=== PATIENT | female | born 1990 | race Caucasian/White ===

== ENCOUNTER 2017-10-09 21:37 | Inpatient (IN) | payer MEDICAID ==
[2017-10-09] MEDS ORDERED: Sodium Chloride 0.9% 10 ML Syringe FLUSH PRN (22:01)
[2017-10-09] MEDS ORDERED: Nalbuphine 20 MG/ML 1 ML Syringe IVPUSH PRN (22:01)
[2017-10-09] MEDS ORDERED: Lidocaine 1% 50 ML MDV INJECT ONE (22:01)
--- NOTE | 2017-10-09 22:09 | PCM.LDHP ---
L&D History of Present Illness - General Date of Service: 10/09/17 Admit Problem/Dx: Patient Status Order with Admit Dx/Problem 10/09/17 22:01 Patient Status [ADT] Routine Admission Diagnosis/Problem Admission Diagnosis/Problem Normal 10/09/17 22:04 40-0/7 week intrauterine , active labor, advanced cervical dilation-9 cm 10/09/17 22:04 Source of Information: Patient History Limitations: Reports: No Limitations - History of Present Illness Introduction:: History of present illness: Tamiko is a 26-year-old 2 para 1001 white female who comes in in active labor. She is 9+ centimeters dilated, 100 percent effaced, -2 station, cephalic presentation, bag abarca bulging, very soft cervix , anterior, contractions occurring 3-5 minutes. 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 Patient's last menstrual period was not evident. She does have menses on a monthly basis. Menarche age 9. Positive hCG was 02/04/2017. Her onset of menses was approximately. One previous delivery on 01/29/2016 at 40-1/7 week gestational age of 22 hours labor. 8 lbs. 4 oz. female infant named Lrori. He was born via normal spontaneous vaginal delivery. history: Patient was seen early in the at 11 weeks gestational age. This is on 03/23/2017. Weight at that time was 46.6. Weight at last visit was 180 for a 34 pound weight gain. Height growth was appropriate. Vital signs were stable throughout the course. Laboratory testing and showed her blood type to be A+ with negative amylase screen. First labs showed hemoglobin 12.9 and platelet count of 355. She is rubella immune. Hepatitis B surface antigen and HIV assays were both negative. Gonorrhea and chlamydia are both negative. Her second trimester labs showed hemoglobin 11.1 and platelets of 273,000. Her 1 hour GTT was 102. Group B strep screen was negative. She is rubella immune. Allergies: none Medications: 1. vitamins Past medical history: 1. Normal spontaneous vaginal delivery 2015 2. History of abnormal Pap smear 2013 on repeat was normal Past surgical history: 1. Oral surgery 2008 Family history and father alive and well. Mother does have hypercholesterolemia. One brother and one sister alive and well. Maternal grandmother is alive and well. She does have a history of breast cancer. Paternal grandfather is alive with heart disease. Paternal grandmother is alive and well. Paternal grandfather secondary to pneumonia. One maternal aunt with Down syndrome. No bleeding, anesthesia, clotting or Rounds noted in the family. History: Patient is , is Mac. A live in a [place], [place]. She does not use any significant most alcohol, drugs tobacco. 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 Review of systems: Patient presently having contractions and uncomfortable of these. Baby has been active Skin: Negative Cardiovascular: Negative Respiratory: No infectious symptoms or shortness breath Breasts: Changes associated spring C. Patient does plan to breast-feed GI: Negative : Changes associated including increased fundal height Musculoskeletal: Negative Neurological: Negative Physical exam: General patient is well-developed well-nourished pleasant female in moderate distress secondary to contractions. Last evaluation clinic showed her weight to be 180 which is increased from 146 at first visit. Her blood pressure 111/72 and heart rate was 133. Weight at first visit was 146.6 and height was 5 feet 4. Body mass index is 23.2 Skin is warm dry without lesions. HEENT, neck and back within normal Lungs are clear with good breath sounds in all lung arredondo. Cardiovascular exam shows regular and rhythm without murmurs. Breasts exam deferred having been done at first visit and found to be normal. Abdomen is protuberant with last fundal height in clinic at 38 cm. Baby in vertex presentation. Cervix as described above. Extremities and neurological exam grossly within normal limits. - Related Data Allergies/Adverse Reactions: Allergies Allergy/AdvReac Type Severity Reaction Status Date / Time No Known Allergies Allergy Verified 01/29/16 08:08 Home Medications: Home Meds Vit/Iron Fum/Folic AC [ Vitamin Formula Tb] 1 each PO DAILY [History] Ibuprofen [IJD: Ibuprofen] 600 mg PO Q4H PRN #30 tablet 01/31/16 [Rx] Past Medical History HEENT History: Reports: None BUSINESS SYSTEM CONSULTANT History: Reports: - Past Surgical History HEENT Surgical History: Reports: Oral Surgery Social & Family History - Family History Family Medical History: Noncontributory Oncologic: Reports: Breast - Caffeine Use Caffeine Use: Reports: None H&P Review of Systems - Review of Systems: Review Of Systems: See Below L&D Exam - Exam Exam: See Below Problem List Initiated/Reviewed/Updated: Yes Orders Last 24hrs: Active Orders 24 hr Category Date Time Status Patient Status [ADT] Routine ADT 10/09/17 22:01 Active Activity as Tolerated [RC] PFP Care 10/09/17 22:01 Active Communication Order [RC] ASDIRECTED Care 10/09/17 22:01 Active Heart Tones [RC] ASDIRECTED Care 10/09/17 22:02 Active Notify Provider [RC] PFP Care 10/09/17 22:01 Active Notify Provider [RC] PRN Care 10/09/17 22:01 Active Peripheral IV Care [RC] . DIRECTED Care 10/09/17 22:02 Active Vital Signs [RC] PER UNIT ROUTINE Care 10/09/17 22:01 Active Regular Diet [DIET] Diet 10/09/17 Dinner Active Lactated Ringers [Ringers, Lactated] 1,000 ml Med 10/09/17 22:15 Ordered IV ASDIRECTED Lidocaine 1% [Xylocaine 1%] Med 10/09/17 22:01 Once 10 ml INJECT ONETIME ONE Nalbuphine [Nubain] Med 10/09/17 22:01 Ordered 10 mg IVPUSH Q2H PRN Sodium Chloride 0.9% [Saline Flush] Med 10/09/17 22:01 Ordered 10 ml FLUSH ASDIRECTED PRN Electronic Heart Tones Ext w TOCO [WOMSER] Oth 10/09/17 22:01 Ordered Routine Electronic Heart Tones Internal [WOMSER] Per Unit Oth 10/09/17 22:01 Ordered Routine Peripheral IV Insertion Adult [OM.PC] Routine Oth 10/09/17 22:01 Ordered Resuscitation Status Routine Resus Stat 10/09/17 22:01 Ordered Medication Orders Lactated Ringer's (Ringers, Lactated) 1,000 mls @ 100 mls/hr IV ASDIRECTED MARY ANNE Lidocaine HCl (Xylocaine 1%) 10 ml INJECT ONETIME ONE Stop: 10/09/17 22:02 Nalbuphine HCl (Nubain) 10 mg IVPUSH Q2H PRN PRN Reason: Pain (moderate 4-6) Sodium Chloride (Saline Flush) 10 ml FLUSH ASDIRECTED PRN PRN Reason: Keep Vein Open Assessment/Plan Comment:: 1. Term intrauterine at 40-0/7 weeks gestational age, active labor, advanced cervical dilation. 2. Group B strep screen negative 3. Rubella negative. 4. Patient desires natural labor. Plan: 1. Anticipate normal spontaneous vaginal delivery. 2. natural labor 3. support nursing plan 4. Routine labor care.
[2017-10-09] MEDS ORDERED: Lactated Ringers 1,000 ML IV SCH (22:15)
--- NOTE | 2017-10-09 22:48 | PCM.SN ---
- Free Text/Narrative Note: Delivery note: Tamiko is a-year-old 2 now para 2002 white female who was admitted on the evening of 10/09/2017 in active labor. She is found be 9+ centimeters dilated , 100% effaced, -2 station, bulging bag of abarca, cephalic presentation, active labor with contractions every 3-5 minutes. She is at 40-0/7 weeks gestational age with an INO of 10/09/2017 as determined by an 11 week ultrasound. Patient progressed rapidly in labor and within a half-hour of the time of admission was ready to deliver. She had artificial rupture membranes resulting in clear amniotic fluid. She delivered a viable, adame, 3620 g (8 lbs. 0 oz. ) male infant with Apgars of 7 and 9, a length of 22 inches in a left occiput anterior position at 2221 hours.. There was a nuchal cord 2 which was reduced over the baby's body. After baby was delivered cord was clamped 2 and cut by the father of the baby. Baby was placed on mom's abdomen, dried. The nose and mouth were bulb suctioned. Cord blood was obtained. Pitocin was administered IV to facilitate increase in uterine tone decrease likelihood of uterine bleeding. The placenta delivered at 2226 hours in a Em fashion, was complete and intact and was discarded per patient desire. It had a three-vessel cord. Patient plans to breast-feed. Estimated blood loss was 200 mL. Condition: Good
[2017-10-09] MEDS ORDERED: Witch Hazel Medicated Pads 100/Jar TOP PRN (22:55)
[2017-10-09] MEDS ORDERED: Benzocaine/Menthol 20%-0.5% Spray 56 GM Canister TOP PRN (22:55)
[2017-10-09] MEDS ORDERED: Lanolin 100% Cream 7 GM Tube TOP PRN (22:55)
[2017-10-09] MEDS ORDERED: Docusate Sodium 100 MG Cap PO PRN (22:55)
[2017-10-09] MEDS ORDERED: Ibuprofen 600 MG Tab PO PRN (22:55)
[2017-10-09] MEDS ORDERED: Acetaminophen 325 MG Tab PO PRN (22:55)
[2017-10-10] MEDS ORDERED: Prenatal Multivitamin with Calcium/Folic Acid/Iron Tab PO SCH (09:00)
--- NOTE | 2017-10-11 05:45 | PCM.DCSUM1 ---
Discharge Summary - Hospital Course Free Text/Narrative:: Tamiko is a-year-old 2 now para 2002 white female who was admitted on the evening of 10/09/2017 in active labor. She is found be 9+ centimeters dilated , 100% effaced, -2 station, bulging bag of abarca, cephalic presentation, active labor with contractions every 3-5 minutes. She is at 40-0/7 weeks gestational age with an INO of 10/09/2017 as determined by an 11 week ultrasound. Patient progressed rapidly in labor and within a half-hour of the time of admission was ready to deliver. She had artificial rupture membranes resulting in clear amniotic fluid. She delivered a viable, adame, 3620 g (8 lbs. 0 oz. ) male infant with Apgars of 7 and 9, a length of 22 inches in a left occiput anterior position at 2221 hours.. There was a nuchal cord 2 which was reduced over the baby's body. After baby was delivered cord was clamped 2 and cut by the father of the baby. Baby was placed on mom's abdomen, dried. The nose and mouth were bulb suctioned. Cord blood was obtained. Pitocin was administered IV to facilitate increase in uterine tone decrease likelihood of uterine bleeding. The placenta delivered at 2226 hours in a Em fashion, was complete and intact and was discarded per patient desire. It had a three-vessel cord. Patient plans to breast-feed. Estimated blood loss was 200 mL. patient has done well. She is ambulating well, voiding without problems and nursing without concerns. Her lochia is minimal. She is desiring discharge home. - Discharge Data Discharge Date: 10/11/17 Discharge Disposition: Home, Self-Care 01 Condition: Good - Patient Instructions Diet: Regular Diet as Tolerated (Nursing diet was increased calories and calcium is recommended) Activity: As Tolerated (No intercourse tampons until bleeding resolves) Driving: May Drive Today Showering/Bathing: May Shower (May take a bath) Notify Provider of: Fever, Increased Pain, Swelling and Redness, Nausea and/or Vomiting - Discharge Plan Home Medications: Home Meds Vit/Iron Fum/Folic AC [ Vitamin Formula Tb] 1 each PO DAILY [History] Ibuprofen [IJD: Ibuprofen] 600 mg PO Q4H PRN #30 tablet 01/31/16 [Rx] Acetaminophen [Tylenol] 650 mg PO Q4H PRN tablet 10/11/17 [Rx] Referrals: Ray Corrales MD [Primary Care Provider] - (Return to clinicDr. Corrales2 weeks.) - Discharge Summary/Plan Comment DC Time >30 min.: No Discharge Summary/Plan Comment: Discharge instructions: 1. Discharge home 2. Diet, activity and follow-up discussed with patient. Recommend nursing diet with increased calories and calcium. 3. Precautions given concern increased pain, bleeding, temperature, signs/ symptoms of DVT/PE. 4. Medications per home medication was printed, discussed with and given to the patient. 5. Return to clinic-Dr. Corrales-[facility] in 2 weeks. Diagnosis: Term -delivered Condition: Good - Patient Data Vitals - Most Recent: Last Vital Signs Temp 36.4 C 10/11/17 02:46 Pulse 69 10/11/17 02:46 Resp 16 10/11/17 02:46 BP 108/66 10/11/17 02:46 Pulse Ox 98 10/11/17 02:46 Weight - Most Recent: 80.286 kg I&O - Last 24 hours: Intake & Output 10/10/17 10/10/17 10/11/17 14:59 22:59 06:59 Intake Total 660 240 Balance 660 240 Lab Results - Last 24 hrs: Laboratory Results - last 24 hr 10/10/17 Range/Units 22:42 WBC 11.48 H (3.98-10.04) K/mm3 RBC 4.12 (3.98-5.22) M/mm3 Hgb 11.1 L (11.2-15.7) gm/L Hct 35.0 (34.1-44.9) % MCV 85.0 (79.4-94.8) fl MCH 26.9 (25.6-32.2) pg MCHC 31.7 L (32.2-35.5) g/dl RDW Std Deviation 42.7 (36.4-46.3) fL Plt Count 265 (182-369) K/mm3 MPV 11.2 (9.4-12.3) fl Med Orders - Current: Current Medications Acetaminophen (Tylenol) 650 mg PO Q4H PRN PRN Reason: mild pain or fever Benzocaine/Menthol (Dermoplast Pain Relief [place]) 0 gm TOP ASDIRECTED PRN PRN Reason: Perineal Comfort Measure Docusate Sodium (Colace) 100 mg PO BID PRN PRN Reason: Constipation Emollient Ointment (Lansinoh Hpa) 0 gm TOP ASDIRECTED PRN PRN Reason: Sore Nipples Ibuprofen (Motrin) 600 mg PO Q4H PRN PRN Reason: Mild pain or fever Last Admin: 10/10/17 01:22 Dose: 600 mg Prenat Multivit/Buttoner/Iron/Folic Ac ( Plus Iron) 1 each PO DAILY [facility] Barrett Meztger (Tucks) 1 pad TOP ASDIRECTED PRN PRN Reason: Hemorrhoid pain Discontinued Medications Lactated Ringer's (Ringers, Lactated) 1,000 mls @ 100 mls/hr IV ASDIRECTED [facility] Last Admin: 10/09/17 22:21 Dose: 999 mls/hr Lidocaine HCl (Xylocaine 1%) 10 ml INJECT ONETIME ONE Stop: 10/09/17 22:02 Last Admin: 10/09/17 22:29 Dose: 10 ml Nalbuphine HCl (Nubain) 10 mg IVPUSH Q2H PRN PRN Reason: Pain (moderate 4-6) Sodium Chloride (Saline Flush) 10 ml FLUSH ASDIRECTED PRN PRN Reason: Keep Vein Open
[2017-10-11 10:40] VITALS: BP 108/71
== END 2017-10-11 10:45 | disposition home or self-care (01) | DRG 775 ==
LOC: JD.OBCHECK 21:37 → JD.OB 21:40 → JD.OBCHECK 22:06 → OBSVTOIN 22:06 → JD.OB 22:21
PROVIDERS: ADMIT Obstetrics & Gynecology; ATTEND Obstetrics & Gynecology
PROC: 10E0XZZ Delivery of Products of Conception, External Approach (ICD-10-PCS; principal; 2017-10-09)
PROC: 10907ZC Drainage of Amniotic Fluid, Therapeutic from Products of Conception, Via Natural or Artificial Opening (ICD-10-PCS; 2017-10-09)
PROC: 6A550ZT Pheresis of Cord Blood Stem Cells, Single (ICD-10-PCS; 2017-10-09)
PROC: 0HQ9XZZ Repair Perineum Skin, External Approach (ICD-10-PCS; 2017-10-09)
DX: O69.81X0 Labor and delivery complicated by cord around neck, without compression, not applicable or unspecified (principal); O70.0 First degree perineal laceration during delivery; Z3A.40 40 weeks gestation of pregnancy; Z37.0 Single live birth
CPT/HCPCS: 36415; 59025; 59300; 59409; 85027; 86592; A9270-GY; J7120

== ENCOUNTER 2019-03-19 05:14 | Inpatient (IN) | payer MEDICAID ==
[~2019-03-19 05:14] MED LIST: Bupivacaine 0.25% 10 ML SDV ONE; Nalbuphine 10 MG/1 ML Vial IVPUSH PRN; Sodium Chloride 0.9% 10 ML Syringe FLUSH PRN
--- NOTE | 2019-03-19 06:17 | HP ---
DATE OF ADMISSION: 03/19/2019 ADMISSION DIAGNOSIS: 39 and 6/7 weeks intrauterine , breech presentation. HISTORY OF PRESENT ILLNESS: Tamiko is a 28-year-old, 3, para 2-0-0-2 white female who was admitted for an attempt at external cephalic version with possible induction of labor, possible primary section. Her INO is 03/20/2019 that is based upon a certain last menstrual period starting 06/13/2018 and supported by 2 ultrasounds done on 08/29/2018 and 11/17/2018. She has been found on most recent evaluation in the clinic to have a breech presenting . Ultrasound shows a augusta breech presenting with back to the left and head in the right upper quadrant. Discussion was held with the patient concerning options of therapy including vaginal breech delivery, external cephalic version, primary section. The patient has been explained the risks, benefits, limitations, and followup of each modality and has decided on an attempt at external cephalic version with induction of labor to follow up if successful. If unsuccessful, we will proceed to primary section. The procedure of terbutaline relaxation, IV access, preprocedure monitoring, and ultrasound are all discussed with the patient. Also, discussed are the potential risks with external cephalic version. The consent is signed. WRITER HISTORY: Tamiko is a 3, para 2-0-0-2, INO of 03/20/2019. The patient's first visit was on 08/29/2018. She has had regular care throughout the . Her weight gain has been from 154 up to 183 pounds for a 29- pound weight gain. Her pre gravid weight was 155. Height is 5 feet 4.5 inches. Prepregnancy body mass index was 26.2. course was relatively unremarkable until the breech presentation, but the patient had declined genetic testing. Her [place] depression screen score was 0/30. Group B Strep screen was negative. The patient plans to breastfeed. Laboratory testing in shows her blood to be B positive with a negative antibody screen. First hemoglobin was 13.7 g/dL. Platelets were 329,000. Her rubella titer shows immunity. RPR is nonreactive. Urine culture at first was negative. Hepatitis B surface antigen and HIV assays were both negative as were her chlamydia and gonorrhea assays. Second trimester labs showed hemoglobin mildly decreased at 11.6 g/dL and platelets were 280,000. 1- hour glucose was 58 mg/dL. Group B Strep screen was negative. PAST OBSTETRIC HISTORY: Includes the followin. Female born on 01/29/2017 at 40 and 1/7 weeks gestational age after 22 hours of labor. 8 pounds 4 ounces female named Lorri. She was born via normal spontaneous vaginal delivery. 2. Male infant born on 10/09/2017 at 40 and 0/7 weeks gestational age, 1 hour of labor, 8 pounds. Normal spontaneous vaginal delivery. Child's name is Beck. PAST MEDICAL HISTORY: Normal spontaneous vaginal delivery x2. PAST SURGICAL HISTORY: Oral surgery in 2007. FAMILY HISTORY: Mother and father alive and well. Mother does have hypercholesterolemia. One brother and 1 sister alive and well. Maternal grandmother alive and well, but with a history of breast cancer. Maternal grandfather alive with heart disease. Paternal grandmother alive and well. Paternal grandfather secondary to pneumonia. No bleeding, asthma, anesthesia, clotting, or problems noted in the family. SOCIAL HISTORY: The patient is . Her 's name is Josué Sharma. The patient lives in [place], [place]. 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 Her is a larkin. She does not use any significant amounts of alcohol, drugs, or tobacco. CURRENT MEDICATIONS: vitamins daily. ALLERGIES: None. REVIEW OF SYSTEMS: GENERAL: The patient has no complaints. She reports good activity and no contractions. SKIN: Negative. HEENT, NECK, and BACK: Negative. CARDIOVASCULAR: No chest pain or exercise intolerance. RESPIRATORY: No shortness of breath or infectious symptoms. BREASTS: Changes associated with only including increased size and tenderness. GASTROINTESTINAL: Negative. GENITOURINARY: Body habitus changes associated with increased fundal height. EXTREMITIES: Negative with the exception of occasional edema. NEUROLOGIC: Negative. PHYSICAL EXAMINATION: GENERAL: The patient is well-developed, well-nourished, female at term. VITAL SIGNS: Her blood pressure on last evaluation in the clinic was 130/72. SKIN: Warm and dry without lesions. HEENT, NECK and BACK: Within normal limits. LUNGS: Clear with good breath sounds in all lung arredondo. CARDIOVASCULAR: Shows regular rate and rhythm without murmurs. BREASTS: Deferred at this time, having been done earlier in the and found to be normal. ABDOMEN: Protuberant with with fundal height at 39 cm. Baby in a breech presentation confirmed by ultrasound. Cervix on last evaluation in the clinic was 2 cm dilated, 40% effaced, soft, -3 station, and mid position. EXTREMITIES: Showed no significant edema. NEUROLOGIC: Grossly within normal limits. ASSESSMENT: 1. 39 and 6/7 weeks intrauterine , augusta breech presentation, admitted for an attempt at external cephalic version. If successful, we will proceed to induction of labor. If unsuccessful, we will proceed to primary section. 2. Group B Strep screen negative. 3. The patient plans to breastfeed. 4. The patient is up to date regarding her influenza vaccine which was given on 03/05/2019. 5. Her Tdap is up to date given on 01/29/2019. 6. RPR is nonreactive and MMR shows immunity. PLAN: 1. We will assess with ultrasound at bedside to determine presentation. If continues to be breech, we will proceed with external cephalic version. The patient has been assessed of the procedure, risks, limitations, and followup. She has signed a consent. 2. The patient will be premedicated with terbutaline 0.25 mg IV over 2 to 3 minutes. 3. Attempt will be made with ultrasound guidance to do external cephalic version. 4. Prior to the procedure, preoperative labs will be obtained, consents will be signed and electronic monitoring will be performed to reassure heart tones. 5. If we proceed with section, we would use Ancef 2 g IV preop for infection prophylaxis. 6. Deep vein thrombosis prophylaxis with sequential compression devices. MMODAL /[id number] TEETEE
[2019-03-19] MEDS: Lactated Ringers 1,000 ML IV SCH ×2 (07:40→12:52)
[2019-03-19] MEDS ORDERED: Oxytocin/Lactated Ringers 10 UNIT/1,000 ML BAG IV SCH ×2 (07:45)
[2019-03-19] MEDS ORDERED: diphenhydrAMINE 50 MG/ML SDV IVPUSH PRN (07:46)
[2019-03-19] MEDS ORDERED: fentaNYL/Bupivacaine/NS 2 MCG-0.125% 250 ML EPIDUR PRN (07:46)
[2019-03-19] MEDS ORDERED: fentaNYL 100 MCG/2 ML SDV EPIDUR PRN (07:46)
[2019-03-19] MEDS ORDERED: ePHEDrine 50 MG/ML SDV IVPUSH PRN (07:46)
--- NOTE | 2019-03-19 18:22 | PCM.PREANE ---
Preanesthetic Assessment - Procedure Proposed Procedure: epidural - Anesthesia/Transfusion/Family Hx Anesthesia History: Prior Anesthesia Without Reaction Family History of Anesthesia Reaction: No Transfusion History: No Prior Transfusion(s) - Review of Systems General: Fatigue, Malaise Pulmonary: No Symptoms Cardiovascular: No Symptoms Gastrointestinal: Abdominal Pain (lapor pains) Neurological: No Symptoms Other: Reports: None - Physical Assessment Vital Signs: Last Vital Signs Temp 36.9 C 03/19/19 06:56 Pulse 84 03/19/19 06:56 Resp 16 03/19/19 06:56 BP 112/75 03/19/19 06:56 Pulse Ox Height: 1.63 m Weight: 84.368 kg ASA Class: 2 Mental Status: Alert & Oriented x3 Airway Class: Mallampati = 1 Dentition: Reports: Normal Dentition Thyro-Mental Finger Breadths: 3 Mouth Opening Finger Breadths: 3 ROM/Head Extension: Full Lungs: Clear to Auscultation, Normal Respiratory Effort Cardiovascular: Regular Rate, Regular Rhythm - Lab Values: Laboratory Last Values WBC 8.22 K/mm3 (3.98-10.04) 03/19/19 07:00 RBC 3.77 M/mm3 (3.98-5.22) L 03/19/19 07:00 Hgb 9.8 gm/dl (11.2-15.7) L D 03/19/19 07:00 Hct 31.5 % (34.1-44.9) L 03/19/19 07:00 MCV 83.6 fl (79.4-94.8) D 03/19/19 07:00 MCH 26.0 pg (25.6-32.2) 03/19/19 07:00 MCHC 31.1 g/dl (32.2-35.5) L 03/19/19 07:00 RDW Std Deviation 40.8 fL (36.4-46.3) 03/19/19 07:00 Plt Count 252 K/mm3 (182-369) 03/19/19 07:00 MPV 10.5 fl (9.4-12.3) 03/19/19 07:00 Neut % (Auto) 70.3 % (34.0-71.1) 03/19/19 07:00 Lymph % (Auto) 19.2 % (19.3-51.7) L 03/19/19 07:00 [place] % (Auto) 8.8 % (4.7-12.5) 03/19/19 07:00 Eos % (Auto) 0.9 (0.7-5.8) 03/19/19 07:00 Baso % (Auto) 0.4 % (0.1-1.2) 03/19/19 07:00 Neut # (Auto) 5.79 K/mm3 (1.56-6.13) 03/19/19 07:00 Lymph # (Auto) 1.58 K/mm3 (1.18-3.74) 03/19/19 07:00 [place] # (Auto) 0.72 K/mm3 (0.24-0.36) H 03/19/19 07:00 Eos # (Auto) 0.07 K/mm3 (0.04-0.36) 03/19/19 07:00 Baso # (Auto) 0.03 K/mm3 (0.01-0.08) 03/19/19 07:00 RPR Non-reactive (NONREACTIVE) 03/19/19 07:00 Blood Type B POSITIVE 03/19/19 07:00 Gel Antibody Screen Negative 03/19/19 07:00 - Allergies Allergies/Adverse Reactions: Allergies Allergy/AdvReac Type Severity Reaction Status Date / Time No Known Allergies Allergy Verified 03/19/19 04:21 - Anesthesia Plan Pre-Op Medication Ordered: None - Acknowledgements Anesthesia Type Planned: Epidural Pt an Appropriate Candidate for the Planned Anesthesia: Yes Alternatives and Risks of Anesthesia Discussed w Pt/Guardian: Yes Pt/Guardian Understands and Agrees with Anesthesia Plan: Yes PreAnesthesia Questionnaire - Past Health History Medical/Surgical History: Denies Medical/Surgical History HEENT History: Reports: None Gastrointestinal History: Reports: GERD 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: - Infectious Disease History Infectious Disease History: Reports: None - Past Surgical History HEENT Surgical History: Reports: Oral Surgery Other HEENT Surgeries/Procedures: wisdom teeth removed in 2007 - SUBSTANCE USE Smoking Status *Q: Never Smoker Second Hand Smoke Exposure: No Recreational Drug Use History: No - HOME MEDS Home Medications: Home Meds Vit/Iron Fum/Folic AC [ Vitamin Formula Tb] 1 each PO DAILY [History] Acetaminophen [Tylenol] 650 mg PO Q4H PRN tablet 10/11/17 [Rx] - CURRENT (IN HOUSE) MEDS Current Meds: Current Medications Diphenhydramine HCl (Benadryl) 25 mg IVPUSH Q6H PRN PRN Reason: Itching Ephedrine Sulfate (Ephedrine Sulfate) 5 mg IVPUSH ASDIRECTED PRN PRN Reason: HYPOTENTSION Fentanyl (Sublimaze) 100 mcg EPIDUR Q3H PRN PRN Reason: Pain Last Admin: 03/19/19 17:47 Dose: 100 mcg Fentanyl/Bupivacaine HCl (Fentanyl/Bupivacaine/Ns 2 Mcg-0.125% 250 Ml) 250 ml EPIDUR CONTINUOUS PRN PRN Reason: Pain Lactated Ringer's (Ringers, Lactated) 1,000 mls @ 125 mls/hr IV ASDIRECTED MARY ANNE Last Admin: 03/19/19 12:52 Dose: 125 mls/hr Oxytocin/Lactated Ringer's (Pitocin In Lr 10 Units/1,000 Ml) 10 unit in 1,000 mls @ 12 mls/hr IV TITRATE MARY ANNE; Protocol Last Titration: 03/19/19 14:49 Dose: 14 munits/min, 84 mls/hr Oxytocin/Lactated Ringer's (Pitocin In Lr 10 Units/1,000 Ml) 10 unit in 1,000 mls @ 3,000 mls/hr IV TITRATE MARY ANNE Nalbuphine HCl (Nubain) 10 mg IVPUSH Q2H PRN PRN Reason: Pain Sodium Chloride (Saline Flush) 10 ml FLUSH ASDIRECTED PRN PRN Reason: Keep Vein Open
--- NOTE | 2019-03-19 19:43 | PCM.SN ---
- Free Text/Narrative Note: Tamiko is a 28-year-old 3 now para 3003 white female at 39-6/7 weeks gestational age with an INO of 03/20/2019 who was admitted on 03/19/2019 with anticipation of breech presenting and for an attempt at external cephalic version. Upon evaluation in labor and delivery she however was found to have a vertex presenting baby. She was started in labor with a Pitocin induction followed by an artificial rupture membranes augmentation. The baby remained very high throughout most of the day and at approximately 1715 the baby was noted to be -3 station and cervix was 3 cm dilated. Artificial rupture membranes was undertaken and after this the patient had a more intense labor and went to complete cervical dilation. In 1907 hrs. on 03/19/2019 the patient delivered a viable, adame, female infant with Apgars of 7 and 8, weight of 4140 g (9 pounds 2.0 ounces), a length of 21.5 inches in a slight left occiput anterior presentation. She delivered over an intact perineum and no lacerations were encountered. Nose and mouth were bulb suctioned. The baby was placed on mom's abdomen. The cord was allowed to pulsate times approximately 1-2 minutes and then was clamped 2 and it was then cut by the baby's father Mac. The umbilical cord had 3 vessels. Cord was obtained. Placenta delivered in a Em presentation at 1923 hrs. It appeared intact and complete and was hard patient desire. Blood loss was 200 mL. Patient plans to breast-feed. Condition: Good.
[2019-03-19] MEDS ORDERED: Witch Hazel Medicated Pads 40/Jar TOP PRN (19:58)
[2019-03-19] MEDS ORDERED: Ibuprofen 600 MG Tab PO PRN (19:58)
[2019-03-19] MEDS ORDERED: Acetaminophen 325 MG Tab PO PRN (19:58)
[2019-03-19] MEDS ORDERED: Docusate Sodium 100 MG Cap PO PRN (19:58)
[2019-03-19] MEDS ORDERED: Benzocaine/Menthol 20%-0.5% Spray 56 GM Canister TOP PRN (19:58)
--- NOTE | 2019-03-20 08:49 | PCM48HPAN ---
Post Anesthesia Note - EVALUATION WITHIN 48HRS OF ANESTHETIC Vital Signs in Normal Range: Yes Patient Participated in Evaluation: Yes Respiratory Function Stable: Yes Airway Patent: Yes Cardiovascular Function Stable: Yes Hydration Status Stable: Yes Pain Control Satisfactory: Yes Nausea and Vomiting Control Satisfactory: Yes Mental Status Recovered: Yes Vital Signs: Last Vital Signs Temp 98.2 F 03/20/19 04:51 Pulse 54 L 03/20/19 04:51 Resp 14 03/20/19 04:51 BP 98/53 L 03/20/19 04:51 Pulse Ox 99 03/20/19 04:51
[2019-03-20 15:49] VITALS: PULSE 56
--- NOTE | 2019-03-20 18:23 | PCM.DCSUM1 ---
Discharge Summary - Hospital Course Free Text/Narrative:: Tamiko is a 28-year-old 3 now para 3003 white female at 39-6/7 weeks gestational age with an INO of 03/20/2019 who was admitted on 03/19/2019 with anticipation of breech presenting infant and for an attempt at external cephalic version. Upon evaluation in labor and delivery she however was found to have a vertex presenting baby. She was started in labor with a Pitocin induction followed by an artificial rupture membranes augmentation. The baby remained very high throughout most of the day and at approximately 1715 the baby was noted to be -3 station and cervix was 3 cm dilated. Artificial rupture membranes was undertaken and after this the patient had a more intense labor and went to complete cervical dilation. In 1907 hrs. on 03/19/2019 the patient delivered a viable, adame, female with Apgars of 7 and 8, weight of 4140 g (9 pounds 2.0 ounces), a length of 21.5 inches in a slight left occiput anterior presentation. She delivered over an intact perineum and no lacerations were encountered. Nose and mouth were bulb suctioned. The baby was placed on mom's abdomen. The cord was allowed to pulsate times approximately 1-2 minutes and then was clamped 2 and it was then cut by the baby's father Mac. The umbilical cord had 3 vessels. Cord was obtained. Placenta delivered in a Em presentation at 1923 hrs. It appeared intact and complete and was hard patient desire. Blood loss was 200 mL. Patient plans to breast-feed. the patient did well. Desires discharge home today. Condition: Good. Diagnosis: Stroke: No - Discharge Data Discharge Date: 03/20/19 Discharge Disposition: Home, Self-Care 01 Condition: Good - Referral to Home Health Primary Care Physician: Ray Corrales MD - Patient Instructions Diet: Regular Diet as Tolerated (Nursing diet) Activity: As Tolerated (No intercourse or tampons until bleeding resolves.) Driving: May Drive Today Showering/Bathing: May Shower Notify Provider of: Fever, Increased Pain, Swelling and Redness, Nausea and/or Vomiting (May take a bath) - Discharge Plan Home Medications: Home Meds Vit/Iron Fum/Folic AC [ Vitamin Formula Tb] 1 each PO DAILY [History] Acetaminophen [Tylenol] 650 mg PO Q4H PRN tablet 03/20/19 [Rx] Ibuprofen [Motrin] 600 mg PO Q4H PRN tablet 03/20/19 [Rx] Referrals: Ray Corrales MD [Primary Care Provider] - (Return to [facility] or [facility]-2-4 weeks.) - Discharge Summary/Plan Comment DC Time >30 min.: No Discharge Summary/Plan Comment: Discharge instructions: 1. Discharge home 2. Diet, activity and follow-up discussed with patient. Recommend nursing diet with increased calories and calcium. 3. Precautions given concern increased pain, bleeding, temperature, signs/ symptoms of DVT/PE. 4. Medications per home medication was printed, discussed with and given to the patient. 5. Return to clinic-Dr. Corrales-[facility] in 2 weeks. Diagnosis: Term -delivered Condition: Good - Patient Data Vitals - Most Recent: Last Vital Signs Temp 37.0 C 03/20/19 15:17 Pulse 56 L 03/20/19 15:17 Resp 15 03/20/19 15:17 BP 115/64 03/20/19 15:17 Pulse Ox 97 03/20/19 15:17 Weight - Most Recent: 84.368 kg I&O - Last 24 hours: Intake & Output 03/20/19 03/20/19 03/20/19 06:59 14:59 22:59 Intake Total 3900 180 60 Balance 3900 180 60 Med Orders - Current: Current Medications Acetaminophen (Tylenol) 650 mg PO Q4H PRN PRN Reason: mild pain or fever Benzocaine/Menthol (Dermoplast Pain Relief [place]) 0 gm TOP ASDIRECTED PRN PRN Reason: Perineal Comfort Measure Last Admin: 03/19/19 20:57 Dose: 1 canister Docusate Sodium (Colace) 100 mg PO BID PRN PRN Reason: Constipation Ibuprofen (Motrin) 600 mg PO Q4H PRN PRN Reason: Mild pain or fever Witch Domenica (Tucks) 1 pad TOP ASDIRECTED PRN PRN Reason: Pain Last Admin: 03/19/19 20:57 Dose: 1 tub Discontinued Medications Bupivacaine HCl (Sensorcaine-Mpf 0.25%) 10 ml .ROUTE .STK-MED ONE Stop: 03/19/19 00:01 Diphenhydramine HCl (Benadryl) 25 mg IVPUSH Q6H PRN PRN Reason: Itching Ephedrine Sulfate (Ephedrine Sulfate) 5 mg IVPUSH ASDIRECTED PRN PRN Reason: HYPOTENTSION Fentanyl (Sublimaze) 100 mcg EPIDUR Q3H PRN PRN Reason: Pain Last Admin: 03/19/19 17:47 Dose: 100 mcg Fentanyl/Bupivacaine HCl (Fentanyl/Bupivacaine/Ns 2 Mcg-0.125% 250 Ml) 250 ml EPIDUR CONTINUOUS PRN PRN Reason: Pain Lactated Ringer's (Ringers, Lactated) 1,000 mls @ 125 mls/hr IV ASDIRECTED MARY ANNE Last Admin: 03/19/19 12:52 Dose: 125 mls/hr Oxytocin/Lactated Ringer's (Pitocin In Lr 10 Units/1,000 Ml) 10 unit in 1,000 mls @ 12 mls/hr IV TITRATE MARY ANNE; Protocol Last Titration: 03/19/19 14:49 Dose: 14 munits/min, 84 mls/hr Oxytocin/Lactated Ringer's (Pitocin In Lr 10 Units/1,000 Ml) 10 unit in 1,000 mls @ 3,000 mls/hr IV TITRATE MARY ANNE Last Admin: 03/19/19 19:45 Dose: 500 munits/min, 3,000 mls/hr Nalbuphine HCl (Nubain) 10 mg IVPUSH Q2H PRN PRN Reason: Pain Sodium Chloride (Saline Flush) 10 ml FLUSH ASDIRECTED PRN PRN Reason: Keep Vein Open
[2019-03-20 21:24] VITALS: BP 114/76
== END 2019-03-20 20:35 | disposition home or self-care (01) | DRG 807 ==
LOC: PREINTOOBSV 05:14 → JD.OB 06:35 → OBSVTOIN 19:07
PROVIDERS: ADMIT Obstetrics & Gynecology; ATTEND Obstetrics & Gynecology
PROC: 10E0XZZ Delivery of Products of Conception, External Approach (ICD-10-PCS; principal; 2019-03-19)
PROC: 10907ZC Drainage of Amniotic Fluid, Therapeutic from Products of Conception, Via Natural or Artificial Opening (ICD-10-PCS; 2019-03-19)
PROC: 3E0R3BZ Introduction of Anesthetic Agent into Spinal Canal, Percutaneous Approach (ICD-10-PCS; 2019-03-19)
DX: O80 Encounter for full-term uncomplicated delivery (principal); Z37.0 Single live birth; Z3A.39 39 weeks gestation of pregnancy
CPT/HCPCS: 01967; 36415; 59025; 59409; 85025; 86592; 86850; 86900; 86901; A9270-GY; J2590; J3010; J3490; J7120

== ENCOUNTER 2021-04-08 21:01 | Inpatient (IN) | payer MEDICAID ==
[2021-04-08] MEDS ORDERED: Methylergonovine 0.2 MG/1 ML Amp IM PRN (21:34)
[2021-04-08] MEDS ORDERED: Sodium Chloride 0.9% 10 ML Syringe FLUSH PRN (21:34)
[2021-04-08] MEDS ORDERED: Benzocaine/Menthol 20%-0.5% Spray 78 GM Cannister TOP PRN (22:01)
[2021-04-08] MEDS ORDERED: Docusate Sodium 100 MG Cap PO PRN (22:01)
[2021-04-08] MEDS ORDERED: Acetaminophen 325 MG Tab PO PRN (22:01)
[2021-04-08] MEDS ORDERED: Ibuprofen 600 MG Tab PO PRN (22:01)
[2021-04-08] MEDS ORDERED: Witch Hazel Medicated Pads 40/Jar TOP PRN (22:01)
--- NOTE | 2021-04-08 22:07 | PCM.LDHP ---
L&D History of Present Illness - General Date of Service: 04/08/21 Admit Problem/Dx: Patient Status Order with Admit Dx/Problem 04/08/21 21:35 Patient Status [ADT] Routine Admission Diagnosis/Problem Admission Diagnosis/Problem 04/08/21 21:59 Tamiko is a 29-year-old 4 para 3-0-0-3 female at 39-3/7 weeks gestational age with an INO of 04/13/2021 admitted for active labor and advanced cervical dilation at 10 cm with bulging bag of abarca. Source of Information: Patient History Limitations: Reports: No Limitations - History of Present Illness Introduction:: Tamiko is a 29-year-old 4 para 3-0-0-3 female at 39-3/7 weeks gestational age with an INO of 04/13/2021 admitted for active labor and advanced cervical dilation at 10 cm with bulging bag of abarca. Reports starting contractions approximately 3 hours prior to admission to the hospital. Progressed with patient upon admission feeling pressure and the urge to push. Moves and active. No leakage of fluid noted. 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 INO 04/13/2021 is based upon a certain last menstrual period started 07/07/2020 and supported by at least 3 ultrasounds done during the course of the . Previous obstetric history includes x3. Weight ranges from 8 pounds 0 ounces to 9 pounds 2 ounces. Previous is relatively unremarkable. No abnormal Paps or STIs other than a mildly abnormal Pap in 2013 which on repeat was normal. course: Tamiko's initial visit was on 10/14/2020 at 40-1/7 weeks gestational age. She is on a very regular basis. Prepregnancy weight was 163.2 and weight at the end of is 191 for approximately 28 pound increase. Vital signs remained stable throughout the course. Her fundal height growth was appropriate. She is group B strep negative. She declines prequel. EPDS score was 0/30 on 11/11/2020. An abnormal 1 hour GTT but a normal 3-hour GTT. She plans to breast-feed. Tdap was given on 02/16/2021. Other immunizations include patient is rubella immune. Hepatitis B series was given in 2003. Meningococcal series given in 2002. Laboratory testing in shows her blood to be B+. Negative [place] screen. First laboratory testing done recently in the clinic has returned within normal limits. Please call the patient with results and place them in the laboratory portion of her chart. Thank you. Globin was 12.1. Platelets were 317,000. She is rubella immune. RPR is nonreactive. Hepatitis B the surface antigen testing was negative. HIV assays were negative. Chlamydia gonorrhea tests are negative. Second trimester hemoglobin is 11.1 g/dL patient was started on iron supplementation. Platelets at that time were 272,000. 1 hour GTT was elevated at 138. The OGTT showed a fasting blood sugar of 80, a 1 hour glucose of 161, a 2-hour glucose of 148 and 3-hour glucose of 85. Group B strep screen was negative. Second RPR done on 01/06/2021 was nonreactive. Allergies: None Medications: vitamins Past medical history: 1. x3 2. History of abnormal Pap smear 2013 Past surgical history: 1. Oral surgery 2007 Family history: Mother and father alive and well. Mother with hypercholesterolemia. 1 brother and 1 sister alive and well. Maternal grandmother alive and well. History of breast cancer. Maternal grandfather alive with heart disease. Paternal grandmother alive and well. Paternal grandfather secondary to pneumonia. No bleeding, clotting, anesthesia or related problems noted. Social history: Patient is . is Josué balderas. 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 She does not use any significant alcohol, luis fernando gs or tobacco. Review of systems: In general patient has only the complaint of active labor with feeling/urge to push.. Skin: Negative Lungs: No infectious symptoms or shortness of breath Cardiovascular: No chest pain or exercise intolerance Breasts: No lumps, changes in size, pain, dimpling, discharge or axillary or supraclavicular concerns. GI: Negative : Active labor symptoms. Prior to that symptoms. Baby has been active. Musculoskeletal: Negative Neurological: Negative In general the patient is well-developed, well-nourished, pleasant female of stated age in no acute distress. Skin is warm dry without lesions. HEENT, neck and back within normal limits. Lungs are clear with good breath sounds in all lung arredondo. Cardiovascular exam shows regular and rhythm without murmurs. Breasts are symmetrical. Exam is not performed again at this time have been done at first visit and found to be normal. Abdomen is gravid with last fundal height in at 38-1/2 cm. Baby in vertex presentation. Genital per digital exam on admission showed complete cervical dilation, bulging bag abarca which was ruptured with resultant clear amniotic fluid. Baby had a +1 station. Extremities and neurological exam are grossly within normal limits. 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: - Infectious Disease History Infectious Disease History: Reports: None - Past Surgical History HEENT Surgical History: Reports: Oral Surgery Other HEENT Surgeries/Procedures: wisdom teeth removed in 2007 Social & Family History - Family History Family Medical History: No Pertinent Family History Oncologic: Reports: Breast - Caffeine Use Caffeine Use: Reports: None H&P Review of Systems - Review of Systems: Review Of Systems: See Below L&D Exam - Exam Exam: See Below - Problem List (1) 39 weeks gestation of SNOMED Code(s): 67075008 ICD Code: Z3A.39 - 39 WEEKS GESTATION OF Status: Acute Current Visit: Yes Problem List Initiated/Reviewed/Updated: Yes Orders Last 24hrs: Active Orders 24 hr Category Date Time Status Patient Status Manage Transfer [TRANSFER] Routine ADT 04/08/21 21:57 Ordered Patient Status [ADT] Routine ADT 04/08/21 21:35 Active Activity as Tolerated [RC] PFP Care 04/08/21 21:34 Active Communication Order [RC] ASDIRECTED Care 04/08/21 21:34 Active Heart Tones [RC] ASDIRECTED Care 04/08/21 21:35 Active Non Stress Test [RC] PER UNIT ROUTINE Care 04/08/21 21:34 Active Notify Provider [RC] PFP Care 04/08/21 21:34 Active Notify Provider [RC] PRN Care 04/08/21 21:34 Active Peripheral IV Care [RC] . DIRECTED Care 04/08/21 21:35 Active Vital Signs [RC] PER UNIT ROUTINE Care 04/08/21 21:34 Active Regular Diet [DIET] Diet 04/09/21 Breakfast Active CORONAVIRUS COVID-19 SCAR [MOLEC] Stat Lab 04/08/21 21:37 Ordered Methylergonovine [Methergine] Med 04/08/21 21:34 Active 0.2 mg IM ONETIME PRN Sodium Chloride 0.9% [Saline Flush] Med 04/08/21 21:34 Active 10 ml FLUSH ASDIRECTED PRN Electronic Heart Tones Ext w TOCO [WOMSER] Oth 04/08/21 21:34 Ordered Routine Peripheral IV Insertion Adult [OM.PC] Routine Oth 04/08/21 21:34 Ordered Resuscitation Status Routine Resus Stat 04/08/21 21:34 Ordered Medication Orders Methylergonovine Maleate (Methylergonovine 0.2 Mg/1 Ml Amp) 0.2 mg IM ONETIME PRN PRN Reason: Excessive Vaginal bleeding Last Admin: 04/08/21 21:35 Dose: 0.2 mg Documented by: VERONICA Sodium Chloride (Sodium Chloride 0.9% 10 Ml Syringe) 10 ml FLUSH ASDIRECTED PRN PRN Reason: Keep Vein Open Assessment/Plan Comment:: 1. 39-3/7-week intrauterine , active labor with advanced cervical dilation and patient intermittently ready to deliver. 2. Group B strep negative 3. Patient plans to breast-feed 4. Desires natural labor 5. Unremarkable course. 6. Only significant risk factor is weight of 9 pounds 2 ounces with last child. Plan: 1. Anticipate 2. We will wait with any IV at this time as patient is ready to deliver upon admission to labor 3. Support nursing decision 4. Routine testing as required by the hospital.
--- NOTE | 2021-04-08 22:11 | PCM.SN.2 ---
- Free Text/Narrative Note: Delivery note: Stage I: Tamiko is a 29-year-old 4 para 3-0-0-3 female at 39-3/7 weeks gestational age with an INO of 04/13/2021 admitted for active labor and advanced cervical dilation at 10 cm with bulging bag of abarca. She underwent artificial rupture membranes with resultant clear amniotic fluid. She began pushing shortly thereafter. heart tones were reassuring. Patient desires no analgesia. There is essentially no time to initiate IV fluid therapy or obtain any labs. Stage II: "Delivered a viable, adame, male with a weight of 3760 g (8 pounds 5 ounces), Apgars 8/9 and a length of 21.75 inches. Baby delivered at 2126 hrs. on 04/08/2021. The baby delivered in a direct occiput anterior position. The perineum and vaginal vault remained intact and no suturing was required. The umbilical cord had 3 vessels. Cord was allowed to pulsate x3 minutes and then was clamped x2 and cut by the baby's father Mac. Cord bloods obtained. Stage III: Placenta delivered at 2133 hrs. in a Day presentation. It appeared intact and Kim was discarded per patient desire. Evaluation of vagina and the perineal area showed no evidence of lacerations and no suturing was required. Standard blood loss was 100 cc. Patient plans to breast-feed. Condition: Good.
[2021-04-09] MEDS: Prenatal Multivitamin with Calcium/Folic Acid/Iron Tab PO SCH ×2 (07:53→16:35)
[2021-04-10 03:52] VITALS: BP 97/60; PULSE 64
--- NOTE | 2021-04-10 06:27 | PCM.SN.2 ---
- Free Text/Narrative Note: 1postpartum day #1. note: Patient is doing well in the period. Minimal lochia, voiding well, ambulated without problems. Nursing without concerns. Patient is afebrile, vital signs are stable Abdomen is flat, soft, uterus is below the umbilicus and is firm and nontender. Legs are nontender. Assessment: recovery going well. Plan: Routine care. Patient be discharged home within the next 24-48 hours.
--- NOTE | 2021-04-10 06:30 | PCM.DCSUM1 ---
Discharge Summary - Hospital Course Free Text/Narrative:: Stage I: Tamiko is a 29-year-old 4 para 3-0-0-3 female at 39-3/7 weeks gestational age with an INO of 04/13/2021 admitted for active labor and advanced cervical dilation at 10 cm with bulging bag of abarca. She underwent artificial rupture membranes with resultant clear amniotic fluid. She began pushing shortly thereafter. heart tones were reassuring. Patient desires no analgesia. There is essentially no time to initiate IV fluid therapy or obtain any labs. Stage II: "Delivered a viable, adame, male with a weight of 3760 g (8 pounds 5 ounces), Apgars 8/9 and a length of 21.75 inches. Baby delivered at 2126 hrs. on 04/08/2021. The baby delivered in a direct occiput anterior position. The perineum and vaginal vault remained intact and no suturing was required. The umbilical cord had 3 vessels. Cord was allowed to pulsate x3 minutes and then was clamped x2 and cut by the baby's father Mac. Cord bloods obtained. Stage III: Placenta delivered at 2133 hrs. in a Day presentation. It appeared intact and Kim was discarded per patient desire. Evaluation of vagina and the perineal area showed no evidence of lacerations and no suturing was required. Standard blood loss was 100 cc. Patient plans to breast-feed. Well. She is nursing without problems, has minimal lochia, is ambulating well and voiding without concerns. She is desiring discharge home. Vital signs been stable. Patient has been afebrile. Condition: Good. Diagnosis: Stroke: No - Discharge Data Discharge Date: 04/10/21 Discharge Disposition: Home, Self-Care 01 Condition: Good - Referral to Home Health Primary Care Physician: Ray Corrales MD - Discharge Diagnosis/Problem(s) (1) 39 weeks gestation of SNOMED Code(s): 53672933 ICD Code: Z3A.39 - 39 WEEKS GESTATION OF Status: Acute Current Visit: Yes - Patient Instructions Diet: Usual Diet as Tolerated (Nursing diet with increased calories and calcium is recommended) Activity: As Tolerated (No intercourse or tampons until bleeding resolves) Driving: May Drive Today Showering/Bathing: May Shower (May take a bath) Notify Provider of: Fever, Increased Pain, Swelling and Redness, Drainage - Discharge Plan Home Medications: Home Meds Vit/Iron Fum/Folic AC [ Vitamin Formula Tb] 1 each PO DAILY 01/29/16 [History] Acetaminophen [Tylenol] 650 mg PO Q4H PRN tablet 03/20/19 [Rx] Ibuprofen [Motrin] 600 mg PO Q4H PRN tablet 03/20/19 [Rx] Acetaminophen [Tylenol] 650 mg PO Q4H PRN tablet 04/10/21 [Rx] Ibuprofen [Motrin] 600 mg PO Q4H PRN tablet 04/10/21 [Rx] Referrals: Ray Corrales MD [Primary Care Provider] - (Return [facility] weeks[facility] - Discharge Summary/Plan Comment DC Time >30 min.: No Total # of Minutes for Discharge Time: 10 Discharge Summary/Plan Comment: Discharge instructions: 1. Discharge home 2. Diet, activity and follow-up discussed with patient. Recommend nursing diet with increased calories and calcium. 3. Precautions given concern increased pain, bleeding, temperature, signs/symptoms of DVT/PE. 4. Medications per home medication was printed, discussed with and given to the patient. 5. Return to clinic-Dr. Corrales[facility] in 2 weeks. Diagnosis: 39-weekterm -delivered Condition: Good - Patient Data Vitals - Most Recent: Last Vital Signs Temp 37.3 C 04/10/21 03:03 Pulse 64 04/10/21 03:03 Resp 12 04/10/21 03:03 BP 97/60 04/10/21 03:03 Pulse Ox 96 04/10/21 03:03 Weight - Most Recent: 86.183 kg I&O - Last 24 hours: Intake & Output 04/09/21 04/09/21 04/10/21 14:59 22:59 06:59 Intake Total 180 60 Balance 180 60 Med Orders - Current: Current Medications Acetaminophen (Acetaminophen 325 Mg Tab) 650 mg PO Q4H PRN PRN Reason: mild pain or fever Benzocaine/Menthol (Benzocaine/Menthol 20%-0.5% [place] 78 Gm Cannister) 0 gm TOP ASDIRECTED PRN PRN Reason: Perineal Comfort Measure Docusate Sodium (Docusate Sodium 100 Mg Cap) 100 mg PO BID PRN PRN Reason: Constipation Ibuprofen (Ibuprofen 600 Mg Tab) 600 mg PO Q4H PRN PRN Reason: Mild pain or fever Last Admin: 04/09/21 20:13 Dose: 600 mg Documented by: Yazan Multivit/[place]/Iron/Folic Ac ( Multivitamin With Calcium/Folic Acid/Iron Tab) 1 each PO DAILY MARY ANNE Last Admin: 04/09/21 16:35 Dose: Not Given Documented by: Barrett Metzger (Barrett Metzger Medicated Pads 40/Jar) 1 pad TOP ASDIRECTED PRN PRN Reason: Perineal Comfort Measure Discontinued Medications Methylergonovine Maleate (Methylergonovine 0.2 Mg/1 Ml Amp) 0.2 mg IM ONETIME PRN PRN Reason: Excessive Vaginal bleeding Last Admin: 04/08/21 21:35 Dose: 0.2 mg Documented by: Sodium Chloride (Sodium Chloride 0.9% 10 Ml Syringe) 10 ml FLUSH ASDIRECTED PRN PRN Reason: Keep Vein Open
== END 2021-04-10 08:36 | disposition home or self-care (01) | DRG 807 ==
LOC: JD.OBCHECK 21:01 → JD.OB 21:07 → JD.OBCHECK 21:25 → JD.OB 21:26
PROVIDERS: ADMIT Obstetrics & Gynecology; ATTEND Obstetrics & Gynecology
PROC: 10E0XZZ Delivery of Products of Conception, External Approach (ICD-10-PCS; principal; 2021-04-08)
PROC: 10907ZC Drainage of Amniotic Fluid, Therapeutic from Products of Conception, Via Natural or Artificial Opening (ICD-10-PCS; 2021-04-08)
DX: O80 Encounter for full-term uncomplicated delivery (principal); Z37.0 Single live birth; Z3A.39 39 weeks gestation of pregnancy
CPT/HCPCS: 59025; 59409; A9270-GY; J2210; U0002

== ENCOUNTER 2023-04-21 00:51 | Observation (INO) | payer MEDICAID ==
[~2023-04-21 00:51] MED LIST changes: -Bupivacaine 0.25% 10 ML SDV ONE; +Lidocaine 1% 10 ML MDV ONE; -Nalbuphine 10 MG/1 ML Vial IVPUSH PRN; -Sodium Chloride 0.9% 10 ML Syringe FLUSH PRN
[2023-04-21] MEDS ORDERED: Lidocaine 1% 50 ML MDV INJECT PRN (01:55)
[2023-04-21] MEDS ORDERED: Nalbuphine HCl 10 MG/ 1ML Amp IVPUSH PRN (01:55)
[2023-04-21] MEDS ORDERED: Lactated Ringers 1,000 ML IV SCH (02:00)
[2023-04-21] MEDS ORDERED: Oxytocin/Lactated Ringers 30 UNIT/500 ML BAG IV SCH ×2 (02:00)
[2023-04-21 02:20] LABS: BASOPHILS PERCENT AUTO 0.4 % (0.0-1.0); EOSINOPHILS ABSOLUTE AUTO 0.1 K/mm3 (0.0-0.4); EOSINOPHILS PERCENT AUTO 1.1 % (0.0-6.0); HEMATOCRIT 29.8 % (37.0-47.0); HEMOGLOBIN 9.9 gm/dl (12.0-16.0); IMMATURE GRAN ABSOLUTE AUTO 0.08 K/mm3 (0.00-0.05); IMMATURE GRAN PERCENT AUTO 0.8 % (0.0-0.4); LYMPHOCYTES ABSOLUTE AUTO 1.5 K/mm3 (1.0-4.8); LYMPHOCYTES PERCENT AUTO 14.2 % (24.0-44.0); MEAN CORPUSCULAR HEMOGLOBIN 28.2 pg (28.0-32.0); MEAN CORPUSCULAR HGB CONC 33.2 g/dl (32.0-36.0); MEAN CORPUSCULAR VOLUME 84.9 fl (83.0-99.0); MONOCYTES ABSOLUTE AUTO 0.7 K/mm3 (0.0-0.8); NEUTROPHILS ABSOLUTE AUTO 8.1 K/mm3 (1.8-7.7); NEUTROPHILS PERCENT AUTO 76.5 % (41.0-71.0); PLATELET COUNT,PLT 213 K/mm3 (150-400); RED BLOOD CELL COUNT 3.51 M/mm3 (4.10-5.30); WHITE BLOOD CELL COUNT,WBC 10.59 K/mm3 (3.9-11.3)
[2023-04-21] MEDS ORDERED: diphenhydrAMINE 50 MG/ML SDV IVPUSH PRN (10:36)
[2023-04-21] MEDS ORDERED: fentaNYL 100 MCG/2 ML SDV EPIDUR PRN (10:36)
[2023-04-21] MEDS ORDERED: ePHEDrine 50 MG/ML SDV IVPUSH PRN (10:36)
[2023-04-21] MEDS ORDERED: Bupivacaine/fentaNYL/NS 100 ML Bag EPIDUR PRN (10:36)
[2023-04-21] MEDS ORDERED: Ibuprofen 600 MG Tab PO PRN (14:10)
[2023-04-21] MEDS ORDERED: Witch Hazel Medicated Pads 40/Jar TOP PRN (14:10)
[2023-04-21] MEDS ORDERED: Benzocaine/Menthol 20%-0.5% Spray 78 GM Cannister TOP PRN (14:10)
[2023-04-21] MEDS ORDERED: Acetaminophen 325 MG Tab PO PRN (14:10)
[2023-04-22] MEDS ORDERED: Ferrous Sulfate 324 MG Tab.EC PO SCH (07:00)
[2023-04-22 16:29] VITALS: BP 116/74; PULSE 68
== END 2023-04-22 17:30 | disposition home or self-care (01) ==
LOC: JD.OBCHECK 00:51 → JD.OB 02:00 → JD.OBCHECK 02:00 → JD.OB 03:00
PROVIDERS: ADMIT Family Medicine; ATTEND Family Medicine
DX: O99.013 Anemia complicating pregnancy, third trimester (principal); Z3A.38 38 weeks gestation of pregnancy
CPT/HCPCS: 36415; 51702; 59025; 59409; 84112; 85025; 86592; 86850; 86900; 86901; A9270; J3010; J7120; J7999; J3490

== ENCOUNTER 2024-10-16 06:43 | Day surgery (SDC) | payer MEDICAID ==
[2024-10-16] MEDS ORDERED: Lidocaine 1% 4 ML ONE (06:57)
[2024-10-16] MEDS ORDERED: Propofol 200 MG/20 ML SDV ONE ×2 (06:57→07:28)
[2024-10-16] MEDS: Lactated Ringers 1,000 ML IV SCH (07:00)
[2024-10-16] MEDS ORDERED: Sodium Chloride 0.9% 10 ML Syringe FLUSH PRN (07:16)
[2024-10-16] MEDS ORDERED: Sodium Chloride 0.9% 10 ML Syringe FLUSH SCH (09:00)
[2024-10-16 09:15] VITALS: BP 97/61; PULSE 50
== END 2024-10-16 08:35 | disposition home or self-care (01) ==
LOC: JD.SDS 06:43
PROVIDERS: ATTEND Surgery
DX: Z12.11 Encounter for screening for malignant neoplasm of colon (principal); Z80.0 Family history of malignant neoplasm of digestive organs; Z79.899 Other long term (current) drug therapy
CPT/HCPCS: 45378; J2003; J2704; J7120; 00812